=== PATIENT | female | born 1985 | race Caucasian/White ===

== ENCOUNTER 2023-01-08 09:33 | Outpatient (CLI) | payer OTHER, SELFPAY | END 2023-01-08 09:34 | disposition home or self-care (01) | LOC: NFLDREF 17:26 | PROVIDERS: PCP Physician Assistant Medical; Referring Provider Physician Assistant Medical; Visit Provider Physician Assistant Medical | DX: Z00.00 Encounter for general adult medical examination without abnormal findings (principal); E66.9 Obesity, unspecified; E78.5 Hyperlipidemia, unspecified; F41.9 Anxiety disorder, unspecified; Z13.1 Encounter for screening for diabetes mellitus; Z13.6 Encounter for screening for cardiovascular disorders | CPT/HCPCS: 80048; 80061 ==

== ENCOUNTER 2023-04-03 11:16 | Outpatient (CLI) | payer OTHER, SELFPAY ==
--- NOTE | 2023-04-03 11:30 | CRLHL7_ITS ---
For Patients: As a result of the Century Cures Act, medical imaging exams and procedure reports are released immediately into your electronic medical record. You may view this report before your referring provider. If you have questions, please contact your health care provider. BILATERAL SCREENING MAMMOGRAM WITH COMPUTER-AIDED DETECTION AND TOMOSYNTHESIS TECHNIQUE: CC and MLO views were obtained. These mammographic images have been obtained using full-field digital technique. These mammographic images were interpreted with the benefit of computer-aided detection. Breast Tomosynthesis was used in this interpretation. COMPARISON FILM: Baseline. FINDINGS: There are scattered areas of fibroglandular density IMPRESSION: There is no radiographic evidence for malignancy. ASSESSMENT: BI-RADS Category 1: Negative RECOMMENDATION: Routine screening mammogram in 1 year. A lay language report of this examination will be provided to the patient. Charlie Manzanares M.D. Diagnostic Radiologist [email or web address] LEONID/Dictated by: Charlie Manzanares MD @ 04/03/2023 12:28:00 PM (Electronically Signed)
== END 2023-04-03 11:17 | disposition home or self-care (01) ==
LOC: MAMMO 11:17
PROVIDERS: PCP Physician Assistant Medical; Visit Provider Physician Assistant Medical
DX: Z12.31 Encounter for screening mammogram for malignant neoplasm of breast (principal)
CPT/HCPCS: 77063; 77067

== ENCOUNTER 2024-07-07 13:23 | Outpatient (CLI) | payer BC, SELFPAY ==
--- OUTSIDE RECORDS SUMMARY | 2024-07-07 13:30 | XMS_ITS | Referral Summary ---
Author Organization [place] Address [facility] [place] [address] Care Team Providers Care Drywall Installer Name Role Phone [facility], [facility] Primary Care Provider Allergies No known active allergies Medications VITAMINS PO Take 1 tablet by mouth daily Active docusate sodium 100 MG tablet Take 100 mg by mouth daily 60 tablet 1 3 Active oxyCODONE (ROXICODONE) 5 MG immediate release tablet Take 1 tablet (5 mg) by mouth every 6 hours as needed for pain 15 tablet 0 3 Active BREWERS YEAST PO Takes 3 tablets by mouth each day. Pt unsure of strength. Active acetaminophen 650 MG TABSIndications :Epigastric pain Take 650 mg by mouth every 4 hours as needed 30 tablet 3 Active cyclobenzaprine (FLEXERIL) 10 MG tablet Take 1 tablet (10 mg) by mouth 3 times daily as needed 20 tablet 7 Active methylPREDNISol one (MEDROL DOSEPAK) 4 MG tablet Take 1 tablet (4 mg) by mouth See Admin Instructions 21 tablet 7 Active Active Problems Problem Noted Date Diagnosed Date Choledocholithiasis with acute cholecystitis 03/13/2013 Cholelithiasis complicating , antepartu m 03/12/2013 Abdominal pain 03/05/2013 Overview (04/02/2013): Imo Update utility Indication for care in labor or delivery 013 Epigastric pain 01/13/2013 Social History Tobacco Use Types Packs/Day Years Used Date Smoking Tobacco: Never Smokeless Tobacco: Never Alcohol Use Standard Drinks/Week Comments No 0 (1 standard drink = 0.6 oz pur e alcohol) Comments No Sex and Gender Information Value Date Recorded Sex Assigned at Not on file Legal Sex Female 4:52 AM CREDIT RESOLUTION REPRESENTATIVE Gender Identity Not on file Sexual Orientation Not on file Last Filed Vital Signs Vital Sign Reading Time Taken Comments Blood Pressure 127/82 07/21/2017 5:02 AM CREDIT RESOLUTION REPRESENTATIVE Pulse 79 07/21/2017 5:02 AM CREDIT RESOLUTION REPRESENTATIVE Temperature 36.8 C (98.2 F) 07/21/2017 2:38 AM CREDIT RESOLUTION REPRESENTATIVE Respiratory Rate 18 07/21/2017 5:02 AM CREDIT RESOLUTION REPRESENTATIVE Oxygen Saturation 100% 07/21/2017 5:02 AM CREDIT RESOLUTION REPRESENTATIVE Inhaled Oxygen Concentration - - Weight 122.5 kg (270 lb) 07/21/2017 2:38 AM CREDIT RESOLUTION REPRESENTATIVE Height 170.2 cm (5' 7) 03/01/2016 3:04 AM CDT Body Mass Index 42.29 03/01/2016 3:04 AM CDT Plan of Treatment Not on file Insurance [facility] Advance Directives For more information, please contact: [phone] * Full Code (Latest Code Status on File) Date Activated Date Inactivated Comments 04/14/2013 1:38 AM 04/15/2013 5:36 PM * Full Code Date Activated Date Inactivated Comments 04/12/2013 8:48 PM 04/13/2013 10:20 PM Care Teams Drywall Installer Relationship Specialty [place] [address] PCP - General 03/01/16
--- OUTSIDE RECORDS SUMMARY | 2024-07-07 13:30 | XMS_ITS | Clinical Summary ---
Author Organization [place] Address [facility] [place] [address] Care Team Providers Care Traffic Expert Name Role Phone [facility], [facility] Primary Care Provider Allergies No known active [...] on file Legal Sex Female 4:52 AM GENERAL ACCOUNTANT Gender Identity Not on file Sexual Orientation Not on file Last Filed Vital Signs Vital Sign Reading Time Taken Comments Blood Pressure 127/82 07/21/2017 5:02 AM GENERAL ACCOUNTANT Pulse 79 07/21/2017 5:02 AM GENERAL ACCOUNTANT Temperature 36.8 C (98.2 F) 07/21/2017 2:38 AM GENERAL ACCOUNTANT Respiratory Rate 18 07/21/2017 5:02 AM GENERAL ACCOUNTANT Oxygen Saturation 100% 07/21/2017 5:02 AM GENERAL ACCOUNTANT Inhaled Oxygen Concentration - - Weight 122.5 kg (270 lb) 07/21/2017 2:38 AM GENERAL ACCOUNTANT Height 170.2 cm (5' 7) 03/01/2016 3:04 AM CDT Body Mass Index 42.29 03/01/2016 3:04 AM CDT Plan of Treatment Not on file Insurance [facility] Advance Directives For more information, please contact: [phone] * Full Code (Latest Code Status on File) Date Activated Date Inactivated Comments 04/14/2013 1:38 AM 04/15/2013 5:36 PM * Full Code Date Activated Date Inactivated Comments 04/12/2013 8:48 PM 04/13/2013 10:20 PM Care Teams Traffic Expert Relationship Specialty [place] [address] PCP - General 03/01/16
--- OUTSIDE RECORDS SUMMARY | 2024-07-07 13:30 | XMS_ITS | Data Portability ---
Author Organization [facility] ETHICS OFFICER, [id number] Address [address] [address] Assessment Encounter Date Assessment Date Assessment LastModified by Organization Details LastModified Time 04/13/2021 04/13/2021 I spent a total of 20 minutes providing care for this patient including: preparing to see the patient, obtaining a medical history, completing documentation of visit information and plans in the EMR, counseling the patient and/or caregiver regarding her diagnosis, treatment options and follow up plans [email or web address] Not available 04/14/2021 09:49:08 Plan of Treatment Reminders Order Date Submit Date Provider Last Modified By Organization Details Last Modified Time Details Appointments None recorded. Lab pap, LB 2020 021 [facility], [place], [address], 13:52:17 HPV DNA, high-risk 2020 021 [facility], [place], [address], 13:52:17 thyroid cascade, serum 2020 021 [facility], [place], [address], 16:24:40 lipid panel, blood 2020 021 [facility], [place], [address], 16:24:41 unlisted lab - glucose, fasting 2020 021 [facility], [address], [place], [address], 17:59:14 Referral None recorded. Procedures None recorded. Surgeries None recorded. Imaging US, pelvis, transabdomi nal + transvagina l 2020 021 [email or web address] [email or web address], [address], [address], [place], [address], 15:11:59 Medication Orders None recorded. Patient TargetsNo targets recorded. Patient Instructions Encounter Date Encounter Id Patient Instructions Last Modified By Organization Details Last Modified Time 03/30/2021 [id number] - Encouraged breast self-awareness and monthly breast exams. - Calcium and vitamin D intake discussed. - Discussed appropriate breast cancer screening and mammogram intervals. [email or web address] Not available 04/03/2021 11:24:07 Reason for Referral None Reported. Results Created Date Observation Date Name Description Value Unit Range Abnormal Flag Note LastModifiedBy Organization Detail LastModifiedTime 03/30/20 21 03/30/2021 THYRO ID CASCA DE thyroid cascade Cancel led - Added to Blood in Lab Not Available [facility] [address] [place], [address], 03/30/2021 16:24:40 03/30/20 21 03/30/2021 LIPID PROFI LE [place] lipid profile cascade Cancel led - Added to Blood in Lab Not Available [facility] [address] [place], [address], 03/30/2021 16:24:41 03/30/20 21 03/30/2021 GLUCO SE, FASTI NG glucose, fasting 101 mg/dL 50-100 high Not Available [facility] [address], [place], [address], 03/30/2021 17:59:14 03/30/2003/30/2021 THYRO ID [place] #2 TSH 1.100 uIU/m L 0.358- 3.740 Not Available [facility] [address] [place], [address], 03/30/2021 18:06:56 03/30/20 21 03/30/2021 LIPID PROFI LE [place] DE specimen type Not Available [facility] [address] [place], [address], 03/30/2021 18:06:57 03/30/2003/30/2021 LIPID PROFI LE [place] cholesterol 177 mg/dL <200 Not Available [facility] [place], [address], 03/30/2021 18:06:57 03/30/2003/30/2021 LIPID PROFI LE [place] triglyceride s profile 139 mg/dL <150 Not Available [facility] [address] [place], [address], 03/30/2021 18:06:57 03/30/2003/30/2021 LIPID PROFI LE [place] LDL chol, calc 103 mg/dL <100 high Not Available [facility] [place], [address], 03/30/2021 18:06:57 03/30/2003/30/2021 LIPID PROFI LE [place] HDL cholesterol 46 mg/dL >40 Not Available [facility] [address] [place], [address], 03/30/2021 18:06:57 03/30/20 21 03/30/2021 LIPID PROFI LE [place] chol/HDL ratio 3.8 0.0-4. 9 Not Available [facility] [address] [place], [address], 03/30/2021 18:06:57 03/30/20 21 03/30/2021 GLUCO SE, FASTI NG glucose, fasting Duplic ate Not Available [facility] [address] [place], [address], 04/02/2021 03:30:58 03/30/20 21 03/30/2021 HPV HIGH RISK DNA WITH 16/18 GENOT YPING HPV high risk type 16 Negati ve for HPV type 16. negati ve for HPV type 16. Not Available [facility] [address] [place], [address], 04/21/2021 13:52:17 03/30/20 21 03/30/2021 HPV HIGH RISK DNA WITH 16/18 GENOT YPING HPV high risk type 18 Negati ve for HPV type 18. negati ve for HPV type 18. Not Available [facility] [address] [place], [address], 04/21/2021 13:52:17 03/30/20 21 03/30/2021 HPV HIGH RISK DNA WITH 16/18 GENOT YPING HPV other high risk types Negati ve for other high risk HPV types. negati ve for other high risk HPV types. HPV other high risk types inclu de 31, 33, 35, 39, 45, 51, 52, 56, 58, 59, 66, and 68. Not Available [facility] [address] [place], [address], 04/21/2021 13:52:17 03/30/20 21 03/30/2021 PAP TEST (ATM MANAGER CYTOL OGY) case report See note CASE REPOR T ----- ----- ----- ----- ----- ----- ----- ----- Pap Smear Case: [id number] Autho ajit ventura Provi marlo: MD Jesus Drummond cted: 03/30 11:33 AM Order ing Locat ion: Julio Cesar beltran Recei leonidas: 03/30 03:54 PM [facility]pi s[facility] Gener al Labor atory First Scree n: Raquel Spear Speci men: Cervi marcial Thin Prep with HPV Test Image r Scree matt, Cervi x ===== ===== ===== ==== = INTER PRETA TION: = ===== ===== ===== ==== Negat mariana for intra epith elial lesio n or tala alejandre cells . Elect faraz danielson by Raquel Spear on 2020 at 12:51 PM SPECI MEN ADEQU ACY ----- ----- ----- ----- ----- ----- ----- ----- Satis facto ry for evalu ation . Endoc chelsea al/anais camachofo minda on zone compo nent prese nt. CLINI MARCIAL INFOR MATIO N ----- ----- ----- ----- ----- ----- ----- ----- Regul ar LMP ----- ----- ----- ----- ----- ----- ----- ----- PAP DISCL AIMER ----- ----- ----- ----- ----- ----- ----- ----- This speci men was scree alia by the ThinP rep Imagi ng Syste m prior to otis lucio w by a cytot echno logis t and/o r patho logis t. The Pap test is a scree matt test and has an irred ucibl e false -nega tive rate. Routi ne perio dic testi ng and follo w-up of unexp carline d clini marcial signs and sympt oms are impor tant to minim ize the conse quenc e of false -nega tive Pap tests . Saundra danielson et al. 2012 Updat ed Conse nsus Guide lines for the Manag ement of Abnor mal Cervi marcial Cance r Scree matt Tests and Cance r Precu rsors . J Low Genit Tract Dis 2013; 17 (5): S2-S2 7 Not Available [facility] [address], [place], [address], 04/21/2021 13:52:17 04/13/20 21 04/13/2021 US, pelvi s, trans abdom inal + trans vagin al No observ ation record ed. [email or web address] Corina [address], [place], [address], 04/15/2021 09:46:37 Result Notes None recorded. Procedures Surgical History Date Name Laterality Status Provider Name and Address Organization Details Recorded Time 03/30/20 21 Date of Last Pap Smear completed Linh Andrade [facility] ETHICS OFFICER 04/21/2021 13:56:02 03/30/20 13 cholecystectomy completed Shanna Dozier (TERMED) [facility] ETHICS OFFICER 03/30/2021 11:37:40 Imaging Results Imaging Date Name Status LastModified by Organization Details LastModified Time 04/13/2021 US, pelvis, transabdominal + transvaginal completed [email or web address] Corina [address], [place], [address], 04/15/2021 09:46:37 Procedure Notes None recorded. Medical Equipment None Reported. Allergies No known drug allergies Medications Not known to be on any medication Vitals Date Recorded Body weight Body mass index (BMI) Body height Systolic blood pressure Diastolic blood pressure Provider Name and Address Organization Details Last Updated DateTime 03/30/2021 906119.8 3 g 44.6 kg/m2 170.18 cm 118 mm[Hg] 76 mm[Hg] Shanna Dozier (TERMED) [facility] ETHICS OFFICER 11:32:36 Date Recorded Body height Systolic blood pressure Diastolic blood pressure Provider Name and Address Organization Details Last Updated DateTime 04/13/2021 170.18 cm 120 mm[Hg] 70 mm[Hg] Shanna Dozier (TERMED) [facility] ETHICS OFFICER 04/13/2021 11:34:19 Social History Question Answer Notes LastModified by Organizat [employer] Details LastModified Time Tobacco Smoking Status Never Smoker Shanna Dozier (TERMED) null, [facility] ETHICS OFFICER 03/30/2021 11:27:37 What Is Your Level Of Alcohol Consumption? 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 Information not available 03/30/2021 Are You Sexually Active? Yes Information not available 03/30/2021 How Much Tobacco Do You Smoke? No Information not available 03/30/2021 Do You Use Any Illicit Or Recreational Drugs? No Information not available 03/30/2021 Sex: Unknown Functional Status Question Answer Note LastModified by Organizat ion Details LastModified Time What is your exercise level? Occasional Information not available 03/30/2021 Mental Status None recorded. Family History Relationship Description Onset Age of this Age Resolved Age Notes LastModified by Organization Details LastModified Time Maternal Grandmother Heart disease Not available 2020 11:27:18 Mother Hypercholest erolemia 60 Not available 2020 11:27:18 Mother Disorder of thyroid gland Not available 2020 11:38:09 Maternal Grandfather Heart disease 74 Not available 2020 11:27:18 Medical History Condition Response Weight Management/Obesity Y ID-Other Gynecological History Statement/Question Response History of Abnormal PAP N HPV Test Negative Date of LMP 03/27/2021 History of Cervical Dysplasia N Date of Last Diabetes Screening 5 12 25 History of Sexually Transmitted Infectio n N Y HPV Vaccine Not Completed Current Control Method Vasectomy Urinary Incontinence Symptoms N Date of Last Pap Smear 03/30/2021 Date of Last Cholesterol Screening Obstetrics History GPAL:G 3 P 3 0 0 3 Type Value Multiple Births 0 Full Term 3 Induced 0 Spontaneous 0 Premature 0 Living 3 Ectopics 0 Total 3 Past Encounters Encounter ID Performer Location Encounter Start Date Encounter Closed Date Diagnosis/Indication Diagnosis SNOMED-CT Code Diagnosis ICD10 Code [id number] ROOPA JAMISON MD [id number] [address] ,[facility] [address] [place] [address] 03/30/2021 11:15:10 03/30/2021 14:24:10 Gynecologic examination 32049906 Z01.419 Irregular periods 097257 07 N92.6 Pain in pelvis 75829719 R10.2 Cholesterol screening 27 1492339 Z13.220 Diabetes m ellitus screening 684847944 Z13.1 [id number] HAMIDA WAGNER MD [id number] [address] ,[facility] [address] [place] [address] 04/13/2021 10:57:44 04/13/2021 15:11:58 Pain in pelvis 40927482 R10.2 [id number] ROOPA JAMISON MD [id number] [address] [place] [address] 04/13/2021 11:24:15 04/13/2021 15:13:32 Right lower quadrant pain 185302521 R10.31 Health Concerns Section Related Observation LastModified by Organization Detai ls LastModified Time None Recorded Concern Status LastModified by Organization Details LastModified Time None Recorded Advance Directives Directive None Recorded Payers Encounter Date Sequence Insurance Name Policy Number Policy Berrios Covered Member ID Berrios Member ID Guarantor Name 03/30/2021 1 [facility] [id number] Norberto Burton [id number] Vanessa Burton 04/13/2021 1 [facility] [id number] Norberto Burton [id number] Vanessa Lee Josephine 04/13/2021 1 [facility] [id number] Norberto Burton [id number] Vanessa Burton Notes Date Note Type Note Provider Name and Address Organization Details Recorded Time 03/30/2021 text/html Annual Premenopausal (Premier)Reported bypatient.Patient Relationship To Practice:new patient Current Medical History:no active medical problems Menstrual History:Frequency of Menses: irregular; Duration of Flow: 5 days; Periods had been monthly, regular until about 1 year ago. At that time, periods started to change with cycle length now 30-50 days. Periods last about 5 days and flow is variable. She also notes right sided pressure/pain with period in January which was very different for her. Contraceptive Method:Current Method Used: vasectomy; satisfied Sexually Active:Yes: STI Screen:declines Mammogram:not applicable Pap Smear +/- HPV Cotesting:due Thyroid/Lipid Screening:due; patient requests today Colonoscopy:[place] [id number] [address] [facility],[address], [place], [address], [facility] ETHICS OFFICER 04/03/2021 11:25:53 04/13/2021 text/html Patient presents after a {{a ATM MANAGER ultrasound.* follic le study.}} Her ultrasound {{today* earlier this week last week earlier this month last month was performed at an outside facility and}} reveals {{normal findings an ovarian cyst ovarian cysts a uterine fibroid uterine fibroids normal appearance of endometrium abnorma l endometrial findings a decreasing size ovarian cyst a resolved ovarian cyst an increasing size ovarian cyst a stable ovarian cyst stable fibroid(s) enlargin g fibroid(s) endometr ial polyp(s) uterus 9.6x6.3x4.5 cm with 6.7 mm trilaminar EMS, 2.1x1.4x2.2 cm subserosal fibroid, normal ovaries.#}} She was recently seen for annual and c/o intermittent RLQ pain as well as come irregularity [place] [id number], [place], [address], [facility] ETHICS OFFICER 04/14/2021 09:50:53 OBGyn Episode Ob Episode Information Episode Created Date Number of Fetuses Patient Bloodtype Patient rh Status Prepregnancy Weight lbs Domestic Partner Domestic Partner Phone Father Name Swiss Machinist Status 03/30/20 21 1 CLOSED Fetus Data First Name Last Name Admitted to NICU Weight (g) Sex Living Outcome Pediatric Complications Fetus ID Race Codes Race Delivery Type F Full Term [id number] Luiz Calculation Initial Luiz Date Initial Exam Date Initial Exam Provider Initial Ultrasound Date Last Menstrual Period Date Ultra Sound Weeks Gestation 0 Eighteen To Twenty Week Luiz Update Ultra Sound Date Fundal Height At Umbil Quickening Date Ultra Sound Latest Weeks Gestation Final Luiz Confirmed By Final Luiz Confirmed Date Final Luiz Date Ultra Sound Latest Days Gestation 0 0 Menstrual History Last Menstrual Date Menses Monthly On Bcp Conception Prior Menses Frequency Hcg Plus Date Menarche Onset Age Delivery Information Delivery Date Delivery Type Labor Anesthesia Weeks Gestation Incision Type Labor Labor Length Hrs Delivered By Post Complications Tubal Sterilization Discharge Date Comments 0 39 Discharge Information Feeding Method Contraceptive Method Maternal HG B and HCT Levels Ob Episode Information Episode Created Date Number of Fetuses Patient Bloodtype Patient rh Status Prepregnancy Weight lbs Domestic Partner Domestic Partner Phone Father Name Swiss Machinist Status 03/30/20 21 1 CLOSED Fetus Data First Name Last Name Admitted to NICU Weight (g) Sex Living Outcome Pediatric Complications Fetus ID Race Codes Race Delivery Type F Full Term [id number] Luiz Calculation Initial Luiz Date Initial Exam Date Initial Exam Provider Initial Ultrasound Date Last Menstrual Period Date Ultra Sound Weeks Gestation 0 Eighteen To Twenty Week Luiz Update Ultra Sound Date Fundal Height At Umbil Quickening Date Ultra Sound Latest Weeks Gestation Final Luiz Confirmed By Final Luiz Confirmed Date Final Luiz Date Ultra Sound Latest Days Gestation 0 0 Menstrual History Last Menstrual Date Menses Monthly On Bcp Conception Prior Menses Frequency Hcg Plus Date Menarche Onset Age Delivery Information Delivery Date Delivery Type Labor Anesthesia Weeks Gestation Incision Type Labor Labor Length Hrs Delivered By Post Complications Tubal Sterilization Discharge Date Comments 3 38 Discharge Information Feeding Method Contraceptive Method Maternal HG B and HCT Levels Ob Episode Information Episode Created Date Number of Fetuses Patient Bloodtype Patient rh Status Prepregnancy Weight lbs Domestic Partner Domestic Partner Phone Father Name Swiss Machinist Status 03/30/20 21 1 CLOSED Fetus Data First Name Last Name Admitted to NICU Weight (g) Sex Living Outcome Pediatric Complications Fetus ID Race Codes Race Delivery Type F Full Term [id number] Luiz Calculation Initial Luiz Date Initial Exam Date Initial Exam Provider Initial Ultrasound Date Last Menstrual Period Date Ultra Sound Weeks Gestation 0 Eighteen To Twenty Week Luiz Update Ultra Sound Date Fundal Height At Umbil Quickening Date Ultra Sound Latest Weeks Gestation Final Luiz Confirmed By Final Luiz Confirmed Date Final Luiz Date Ultra Sound Latest Days Gestation 0 0 Menstrual History Last Menstrual Date Menses Monthly On Bcp Conception Prior Menses Frequency Hcg Plus Date Menarche Onset Age Delivery Information Delivery Date Delivery Type Labor Anesthesia Weeks Gestation Incision Type Labor Labor Length Hrs Delivered By Post Complications Tubal Sterilization Discharge Date Comments 8 39 Discharge Information Feeding Method Contraceptive Method Maternal HG B and HCT Levels
--- NOTE | 2024-07-07 13:40 | CRLHL7_ITS ---
For Patients: As a result of the Century Cures Act, medical imaging exams and procedure reports are released immediately into your electronic medical record. You may view this report before your referring provider. If you have questions, please contact your health care provider. BILATERAL SCREENING MAMMOGRAM WITH COMPUTER-AIDED DETECTION AND TOMOSYNTHESIS TECHNIQUE: CC and MLO views were obtained. These mammographic images have been obtained using full-field digital technique. These mammographic images were interpreted with the benefit of computer-aided detection. Breast Tomosynthesis was used in this interpretation. COMPARISON FILM: 04/03/23. FINDINGS: The breasts are almost entirely fatty IMPRESSION: There is no radiographic evidence for malignancy. ASSESSMENT: BI-RADS Category 1: Negative RECOMMENDATION: Routine screening mammogram in 1 year. A lay language report of this examination will be provided to the patient. Charlie Manzanares M.D. Diagnostic Radiologist [email or web address] Transcribed: 3:21 p.tran pereira/Dictated by: Charlie Manzanares MD @ 07/08/2024 11:56:00 AM (Electronically Signed)
== END 2024-07-07 13:24 | disposition home or self-care (01) ==
LOC: MAMMO 13:27
PROVIDERS: PCP Physician Assistant Medical; Visit Provider Physician Assistant Medical
DX: Z12.31 Encounter for screening mammogram for malignant neoplasm of breast (principal)
CPT/HCPCS: 77063; 77067

== ENCOUNTER 2025-06-29 08:15 | Outpatient (CLI) | payer BC, SELFPAY | END 2025-06-29 08:16 | disposition home or self-care (01) | LOC: NFLDREF 07-03 06:13 | PROVIDERS: PCP Physician Assistant Medical; Referring Provider Physician Assistant Medical; Visit Provider Physician Assistant Medical | DX: Z00.00 Encounter for general adult medical examination without abnormal findings (principal); F41.9 Anxiety disorder, unspecified | CPT/HCPCS: 80053; 80061; 82306; 84443 ==